=== PATIENT | male | born 1960 | race Caucasian/White ===

== ENCOUNTER 2016-10-29 03:22 | Emergency (ER) | payer OTHER ==
[~2016-10-29] VITALS: Ht 180.3 cm; Wt 72.7 kg
[2016-10-29 03:30] VITALS: BP 118/66; PULSE 82; RESP 16; O2SAT 96
--- NOTE | 2016-10-29 04:40 | ED.REPORT ---
HPI-Overdose/Alcohol Toxicity Date of Service Oct 29, 2016 ED Provider: Rohan Weiss MD Pt is a 55 y.o. male with a hx of polysubstance abuse who presents to the ED via EMS with ETOH intoxication. Per EMS pt fell down at [facility] and is unable to walk and had slurred speech. Upon arrival to the ED pt is seeking detox services. Pt reports a hx of withdrawal seizures. Pt endorse to ETOH use and denies drug use. He has no medical complaints at this time. Nursing Notes Stated Complaint: DETOX Chief Complaint: Substance Abuse Nursing Notes Reviewed: Yes Allergies: Coded Allergies: hydrocodone bitartrate (Verified Allergy, Unknown, 10/02/16) No Active Prescriptions or Reported Meds General Time Seen by Provider: 04:18 Chief Complaint Intoxicated, alcohol Hx Obtained From: Patient, EMS Arrived By: Ambulance Onset Occurred: Just prior to arrival Symptom Duration: Since onset Severity: Current: No pain currently Risk-Overdose/Alcohol Tox )( Suicide Risk Stratification RF Statements: Risk factors reviewed Past Medical History Past Medical History Notes: Multiple recent ED visits for alcohol intoxication, high volume utilizer Past Medical History 1. H/o paroxysmal A-fib at the time of Cardiac arrest attributed to respiratory depression from polysubstance abuse with resultant anoxic encephalopathy 01/2012 2. History of alcoholism with abuse/dependence, ongoing and history of withdrawal seizure and a multitude of ED visits related to EtOH 3. H/o subdural hemorrhage(multiple) 4. Prior heroin use 5. Hepatitis C 6. Chronic pain 7. Anxiety 8. Mutliple falls with innumerable head CTs performed, history of subdurals requiring keenan holes 9. Katharine-Schlatter disease as a youth Past Surgical History Cervical surgery Bronchoscopy Family History Alcoholism Smoking History Current Every Day Smoker Social History History of IV heroin and alcohol abuse. Alcohol Use: >5 per day Drug Use: Denies drug use Other Social History: Frequent ED visitor, Local resident Ambulatory Status Independent Review of Systems Intoxication, ETOH Neurologic: Reports: Problem walking, Slurred speech (due to ETOH) Complete sys rev & neg: except as marked. Physical Exam Initial Vital Signs Vital Signs (First) Date Time Temp Pulse Resp B/P Pulse Ox O2 Delivery O2 Flow Rate FiO2 10/29/16 03:30 36.4 82 16 118/66 96 Room Air Initial VS: Reviewed, Vital signs normal Head / Eyes: Atraumatic, Normocephalic Extremities: Vascular intact, Neuro intact Skin: Warm, Dry, No cyanosis General/Constitutional: Awake, Alert, Well appearing, Well developed, Well hydrated, Well nourished, Not toxic appearing Appearance / Presentation: Positive: Intoxicated Respiratory / Chest: Atraumatic, Breath sounds NL, Breath sounds = bilat, No respiratory distress, No rales, No rhonchi, No wheezing, No retractions, No stridor Cardiovascular: Heart rate NL, Regular rhythm, Heart sounds NL, No gallop, No murmurs, No rubs, Peripheral circulation NL Abdomen: Atraumatic, Soft, Non-tender, No distention Neurologic: Oriented X3 Speech: Positive: Slurred (due to ETOH) Psychiatric: Not suicidal, Not homicidal Re-Eval/Medical Decision Med Decision/Clinical Course T5-year-old alcoholic well known to this emergency room presents with an infallible plan for sobriety that needs to start with a prescription of Librium from me. There are no sobering beds available. He has no association with any sober individual I am aware of. He is being discharged home and encouraged to make a plan during the day with outpatient providers. Source of Hx: Old records Re-Evaluation/Progress : Time of Eval: 04:37 Re-Evaluation/Progress Note: Pt informed that [facility] does not have any beds currently. Discussed plan for discharge, pt understands and agrees with plan. Counseled Regarding: Diagnosis, Need for follow-up, When/why to return to ED Discharge & Departure Impression: Primary Impression: Alcohol intoxication Complication of substance-induced condition: uncomplicated Qualified Code: F10.120 - Alcohol abuse with intoxication, uncomplicated Disposition: Home Discharge Condition All VS Reviewed: Yes Condition: Stable Patient Instructions: Alcohol Intoxication (ED) Additional Instructions: There are no beds available at sobering services. You can check with them again on Wednesday, as beds may be opening up. Limit your alcohol intake. Follow- up with your sponsor, your alcohol counselor, and/or your primary doctor. Referrals: OTHER,PHYSICIAN (PCP) [facility] Scribe Attestation Portions of this note were transcribed by Annelise Wolfe. I, Dr. Weiss personally performed the history, physical exam and medical decision-making; I reviewed and confirmed the accuracy of the information in the transcribed note. Signed by: Nathalie Sánchez, 10/29/16 and 0552 copies to: [facility] Rohan Weiss MD Oct 29, 2016 04:40 ANNELISE WOLFE Oct 29, 2016 04:46
== END 2016-10-29 04:58 | disposition home or self-care (01) ==
LOC: SED 03:22
DX: F10.120 Alcohol abuse with intoxication, uncomplicated (principal); F17.200 Nicotine dependence, unspecified, uncomplicated; Z88.5 Allergy status to narcotic agent

== ENCOUNTER 2016-12-25 21:00 | Emergency (ER) | payer OTHER ==
[~2016-12-25] VITALS: Ht 180.3 cm; Wt 68.2 kg
[2016-12-25 21:03] VITALS: BP 119/74; PULSE 85; RESP 16; O2SAT 97
--- NOTE | 2016-12-25 21:46 | ED.REPORT ---
HPI-Overdose/Alcohol Toxicity Date of Service Dec 25, 2016 ED Provider: Rohan Weiss MD Patient is a 56 year old male with a history of alcohol abuse with alcohol withdrawal seizures who presents to the ED seeking medical clearance for [facility], last drinking alcohol at 4:30pm this afternoon. Patient states that he was recently sober for 2 months but he relapsed after his brother last week. He has been drinking every day since. Patient admits to shaking and is concerned for alcohol withdrawal seizures. Patient states that he is very anxious. Patient denies vomiting or diarrhea. Patient admits to smoking marijuana but denies any other illicit drug use. The patient has a bed at [facility] at 11am tomorrow morning. Patient reportedly drove to [facility] tonight while intoxicated. He was put into a taxi and sent to the ED for evaluation. Nursing Notes Stated Complaint: DETOX Chief Complaint: Substance Abuse Nursing Notes Reviewed: Yes Allergies: Coded Allergies: hydrocodone bitartrate (Verified Allergy, Unknown, 12/25/16) No Active Prescriptions or Reported Meds General Time Seen by Provider: 22:09 Chief Complaint Other (alcohol withdrawal) Hx Obtained From: Patient Arrived By: Walk-in Onset Occurred: 5 - 8 hours ago Symptom Duration: Since onset Severity: Current: No pain currently Severity: Maximum: No pain Recent Healthcare: No recent doctor visit, No recent hospitalization Similar Sx Previous: Yes Past Medical History Past Medical History 1. H/o paroxysmal A-fib at the time of Cardiac arrest attributed to respiratory depression from polysubstance abuse with resultant anoxic encephalopathy 01/2012 2. History of alcoholism with abuse/dependence, ongoing and history of withdrawal seizure and a multitude of ED visits related to EtOH 3. H/o subdural hemorrhage(multiple) 4. Prior heroin use 5. Hepatitis C 6. Chronic pain 7. Anxiety 8. Mutliple falls with innumerable head CTs performed, history of subdurals requiring keenan holes 9. Katharine-Schlatter disease as a youth Past Surgical History Cervical surgery Bronchoscopy Family History Alcoholism Smoking History Current Every Day Smoker Social History History of IV heroin and alcohol abuse. Alcohol Use: >5 per day Drug Use: Denies drug use Other Social History: Frequent ED visitor, Local resident Ambulatory Status Independent Review of Systems GI: Denies: Diarrhea, Vomiting Neurologic: Reports: Shaking, Denies: Seizure Psychiatric: Reports: Anxiety, Denies: Suicidal ideation Complete sys rev & neg: except as marked. Physical Exam Initial Vital Signs Vital Signs (First) Date Time Temp Pulse Resp B/P Pulse Ox O2 Delivery O2 Flow Rate FiO2 12/25/16 21:03 37.0 85 16 119/74 97 Room Air Initial VS: Reviewed, Vital signs normal Head / Eyes: Atraumatic, Normocephalic, PERRL ENT: Conjunctiva normal, No scleral icterus Neck: Supple, Full range of motion Extremities: Vascular intact, Neuro intact, No swelling Skin: Warm, Dry, No cyanosis General/Constitutional: Awake, Alert Behavior: Positive: Anxious tremulous, hard of hearing Respiratory / Chest: Breath sounds NL, Breath sounds = bilat, No respiratory distress, No rales, No rhonchi, No wheezing Cardiovascular: Regular rhythm, Heart sounds NL, No murmurs Heart Rate / Rhythm: Positive: Tachycardia Abdomen: Soft, Non-tender, No guarding, No rebound Neurologic: Oriented X3, Speech NL, No motor deficits, No sensory deficits Psychiatric: Not suicidal, Not homicidal Abnormal Mood/Affect: Positive: Anxious ENT: Airway patent, Mucous membranes moist edentulous Interpretation & Diagnostics Interpretation & Diagnostics: Breathalyzer: 0.173 Lab Results Interpretation Test 12/25/16 22:04 Hold Urine Received (Received) Re-Eval/Medical Decision Med Decision/Clinical Course 56-year-old male who had been clean and sober for a period time, but a brother and he relapsed. He is set up to go to [facility]. His alcohol level is 0.1 [birth year]/06/1980 showing mild withdrawal symptoms. He was given an Ativan and will be discharged to [facility] with an Ativan prepack taper. He is medically cleared for outpatient treatment at this time. Source of Hx: Old records Re-Evaluation/Progress : Time of Eval: 23:15 Patient Status: Condition improved Re-Evaluation/Progress Note: Patient was informed that a bed has now opened for him at [facility]. Patient understands and agrees with the plan to be discharged to go directly to [facility]. Discharge instructions and follow-up discussed. All questions were addressed. Return to the ED warnings given. Counseled Regarding: Diagnosis, Lab results, Need for follow-up, When/why to return to ED Discharge & Departure Impression: Primary Impression: Alcohol withdrawal Complication of substance-induced condition: uncomplicated Qualified Code: F10.230 - Alcohol dependence with withdrawal, uncomplicated Additional Impression: Alcohol abuse )( Condition at Discharge: No danger to self, No danger to others, No suicidal ideation, No homicidal ideation Disposition: Home Discharge Condition All VS Reviewed: Yes Condition: Stable Patient Instructions: Alcohol Withdrawal (ED) Additional Instructions: Go directly to [facility]. Lorazepam (Ativan) taper is sent with the patient. Referrals: OTHER,PHYSICIAN (PCP) (Family) Scribe Attestation Portions of this note were transcribed by Melany Andres. I, Dr. Weiss personally performed the history, physical exam and medical decision-making; I reviewed and confirmed the accuracy of the information in the transcribed note. Signed by: Nathalie Degroot, 12/25/2016 [id number] copies to: OTHER,PHYSICIAN Rohan Weiss MD Dec 25, 2016 21:46 Melany Andres Dec 25, 2016 22:16
[2016-12-25 21:51] VITALS: BP 128/77; PULSE 78; RESP 16; O2SAT 98
[2016-12-25] MEDS ORDERED: LORazepam 2 mg Tablet PO ONE (22:15)
[2016-12-25] MEDS ORDERED: _LORazepam 2 MG Tablet PO SCH (23:15)
[2016-12-26 00:46] VITALS: BP 140/90; PULSE 80; RESP 16; O2SAT 99
== END 2016-12-26 00:47 | disposition home or self-care (01) ==
LOC: SED 21:00
DX: F10.230 Alcohol dependence with withdrawal, uncomplicated (principal); I48.0 Paroxysmal atrial fibrillation; F17.200 Nicotine dependence, unspecified, uncomplicated; Z88.5 Allergy status to narcotic agent

== ENCOUNTER 2017-01-12 09:48 | Emergency (ER) | payer OTHER ==
[2017-01-12 10:14] VITALS: BP 113/75; PULSE 56; RESP 16; O2SAT 94
--- NOTE | 2017-01-12 10:57 | ED.REPORT ---
HPI-Overdose/Alcohol Toxicity Date of Service Jan 12, 2017 ED Provider: Emy Garcia History of Present Illness: last drink this am. has had seizures with stopping alcohol. Has a bed at crisis. primary care is [facility]andra in [place]. wants drugs, any Upset because he was told at crisis it would only take a few minutes. Nursing Notes Stated Complaint: MEDICAL CLEARANCE Chief Complaint: Substance Abuse Nursing Notes Reviewed: Yes Allergies: Coded Allergies: hydrocodone bitartrate (Verified Allergy, Unknown, 01/12/17) No Active Prescriptions or Reported Meds General Time Seen by Provider: 10:53 Chief Complaint Intoxicated, alcohol Hx Obtained From: Patient Risk-Overdose/Alcohol Tox )( Suicide Risk Stratification : Alcohol use: Substance abuseNo: Access to firearms, Close associate suicide, Family Hx of Suicide, Previous attempt, Prior psych admission RF Statements: Risk factors reviewed Past Medical History Past Medical History 1. H/o paroxysmal A-fib at the time of Cardiac arrest attributed to respiratory depression from polysubstance abuse with resultant anoxic encephalopathy 01/2012 2. History of alcoholism with abuse/dependence, ongoing and history of withdrawal seizure and a multitude of ED visits related to EtOH 3. H/o subdural hemorrhage(multiple) 4. Prior heroin use 5. Hepatitis C 6. Chronic pain 7. Anxiety 8. Mutliple falls with innumerable head CTs performed, history of subdurals requiring keenan holes 9. Katharine-Schlatter disease as a youth Past Surgical History Cervical surgery Bronchoscopy Family History Alcoholism Smoking History Current Every Day Smoker Social History History of IV heroin and alcohol abuse. Alcohol Use: >5 per day Drug Use: Denies drug use Other Social History: Frequent ED visitor, Local resident Occupation reprts having a home 01/12/2017 Ambulatory Status Independent Review of Systems Basic Review of Systems : No dysuria, No frequency Allergy / Immune: No allergy Physical Exam Initial Vital Signs Vital Signs (First) Date Time Temp Pulse Resp B/P Pulse Ox O2 Delivery O2 Flow Rate FiO2 01/12/17 10:14 36.8 56 16 113/75 94 Room Air Initial VS: Reviewed, Vital signs normal Head / Eyes: Atraumatic, Normocephalic, PERRL ENT: Mucous membranes moist, Conjunctiva normal, No scleral icterus Neck: Supple, Non-tender, Full range of motion Back: No CVA tenderness Lymphatic: No lymphadenopathy Extremities: Vascular intact, Neuro intact, No swelling, No tenderness Skin: Warm, Dry, No cyanosis General/Constitutional: Awake, Alert, No acute distress, Well appearing, Well developed, Well hydrated, Well nourished, Cooperative, Not toxic appearing Respiratory / Chest: Atraumatic, Breath sounds NL, Breath sounds = bilat, No respiratory distress Cardiovascular: Heart rate NL, Regular rhythm, Heart sounds NL, No gallop Abdomen: Atraumatic, Soft, Non-tender Neurologic: Oriented X3, Speech NL, No motor deficits Psychiatric: Affect NL, Mood NL, Not suicidal Re-Eval/Medical Decision Med Decision/Clinical Course 56 year old male well known to the ER presents for [facility] clearance. Patient is unhappy that he had to wait. Etoh is at .225 and utox is negative. He is cleared to go to crisis and is provided a prescription for an ativan prepack. Patient with aspects of personality disorder, which is his baseline as is alsohol abue. No sign of OD attempt at this time. Discharge & Departure Impression: Primary Impression: Alcohol abuse Patient Instructions: Abuse of Alcohol (ED) Additional Instructions: You have a bed at crisis. Please work on staying sober. You are being provided an ativan prescription. Follow with primary care as needed. Referrals: OTHER,PHYSICIAN (PCP) (Family) EDSupervising Provider for APC: Geoffrey Mcadams MD, Sue ARNP Jan 12, 2017 10:57
== END 2017-01-12 11:07 | disposition home or self-care (01) ==
LOC: SED 09:48
DX: F10.10 Alcohol abuse, uncomplicated (principal); F17.200 Nicotine dependence, unspecified, uncomplicated; Z88.5 Allergy status to narcotic agent
CPT/HCPCS: 81002; 82075; 99284; Q0177

== ENCOUNTER 2017-01-18 13:38 | Emergency (ER) | payer OTHER ==
[~2017-01-18] VITALS: Ht 180.3 cm; Wt 70.5 kg
[2017-01-18 14:31] VITALS: BP 108/72; PULSE 84; RESP 18; O2SAT 96
--- NOTE | 2017-01-18 15:07 | ED.REPORT ---
HPI-General Illness Date of Service Jan 18, 2017 ED Provider: Harris Robison MD The patient is a 56 year old male with history of alcohol abuse, who presents to the emergency department requesting medical clearance for crisis [facility]. The patient relapsed about 3 months ago and has been drinking about 1 pint of hard alcohol each day. He has had seizures with alcohol withdrawal in the past. He denies drug use. He denies suicidal or homicidal ideation. He denies any physical complaints at this time. Nursing Notes Stated Complaint: DETOX Chief Complaint: Substance Abuse Nursing Notes Reviewed: Yes Allergies: Coded Allergies: hydrocodone bitartrate (Verified Allergy, Unknown, 01/12/17) No Active Prescriptions or Reported Meds General Time Seen by MD: 14:59 Chief Complaint Medical clearance Hx Obtained From: Patient Arrived By: Walk-in Sudden in Onset?: No Onset Occurred: More than a week ago... Context of Onset: EtOH use Symptom Duration: Since onset Severity: Current: Moderate Severity: Maximum: Moderate Recent Healthcare: No recent doctor visit, No recent hospitalization Similar Sx Previous: Yes Past Medical History Past Medical History 1. H/o paroxysmal A-fib at the time of Cardiac arrest attributed to respiratory depression from polysubstance abuse with resultant anoxic encephalopathy 01/2012 2. History of alcoholism with abuse/dependence, ongoing and history of withdrawal seizure and a multitude of ED visits related to EtOH 3. H/o subdural hemorrhage(multiple) 4. Prior heroin use 5. Hepatitis C 6. Chronic pain 7. Anxiety 8. Mutliple falls with innumerable head CTs performed, history of subdurals requiring keenan holes 9. Katharine-Schlatter disease as a youth Past Surgical History Cervical surgery Bronchoscopy Family History Alcoholism Smoking History Current Every Day Smoker Social History History of IV heroin and alcohol abuse. Alcohol Use: >5 per day Drug Use: Denies drug use Other Social History: Frequent ED visitor, Local resident Occupation reprts having a home 01/12/2017 Ambulatory Status Independent Review of Systems Full Review of Systems Constitutional: Denies: Chills, Fever Ears / Nose / Throat: Denies: Nasal congestion, Sore throat Respiratory: Denies: Non-productive cough, Shortness of breath Cardiovascular: Denies: Chest pain GI: Denies: Abdominal pain, Diarrhea, Vomiting Skin: Denies Rash Neurologic: Denies: Confusion, Focal weakness, Numbness Psychiatric: Denies: Homicidal ideation, Suicidal ideation Complete sys rev & neg: except as marked. Physical Exam Vital Signs Vital Signs Date Time Temp Pulse Resp B/P Pulse Ox O2 Delivery O2 Flow Rate FiO2 01/18/17 14:31 37.0 84 18 108/72 96 Room Air Initial VS: Reviewed Head / Eyes: Atraumatic, Normocephalic, PERRL Neck: Supple, Non-tender, Full range of motion Respiratory: Breath sounds normal, Clear to auscultation, No respiratory distress Cardiovascular: Regular rate & rhythm, Heart sounds normal, Intact distal pulses Abdomen / GI: Soft, Non-tender, No guarding, No rebound, No distention Extremities: Vascular intact, Neuro intact, No swelling, No tenderness Skin: Warm, Dry, No cyanosis Neurologic: Alert, Oriented, Nonfocal Psychiatric: Mood/affect normal, Behavior normal, Normal thought content General/Constitutional: Awake, Alert, Cooperative ENT: Airway patent Mouth: Positive: Mucous membranes dry Interpretation & Diagnostics Lab Results Interpretation Test 01/18/17 15:37 Hold Urine Received (Received) Re-Eval/Medical Decision Med Decision/Clinical Course The patient is a 56 year old male with history of alcohol abuse, who presents to the emergency department requesting medical clearance for crisis [facility]. The patient relapsed about 3 months ago and has been drinking about 1 pint of hard alcohol each day. He has had seizures with alcohol withdrawal in the past. He denies drug use. He denies suicidal or homicidal ideation. He denies any physical complaints at this time. Emergency room he is afebrile and hemodynamically stable. He smells of alcohol though he does not demonstrate any significant degree of clinical intoxication. Breathalyzer: 252, repeat 213 Urine drug screen: negative Patient is without suicidal or homicidal ideation. He has no significant medical comorbidities. He is neurologically intact. There is no evidence of trauma or other significant organic illness. He has significant history of alcohol abuse as well as alcohol withdrawal seizures though he is not clinically in any degree of alcohol withdrawal at this time. He was observed here in the emergency department and did receive 1 mg of oral Ativan as he reported feeling mildly tremulous. He is seen and evaluated by our emergency department social media editor and there is a bed available for him at [facility]. He was discharged there with an Ativan taper which will be filled and administered by staff at crisis respite. Prior to discharge follow-up and return precautions were reviewed in detail with the patient who verbalized understanding and agreement with the plan. The patient was discharged in stable condition. Source of Hx: Old records Time of Eval: 16:29 Re-Evaluation/Progress Note: Discussed plan for discharge to crisis resp[facility]. All questions were addresserd. Counseled Regarding: Diagnosis, Lab results, Need for follow-up, When/why to return to ED Discharge & Departure Primary Impression: Alcohol abuse Additional Impressions: Alcohol dependence with withdrawal Complication of substance-induced condition: uncomplicated Qualified Code: F10.230 - Alcohol dependence with withdrawal, uncomplicated Anxiety Disposition: Home Discharge Condition All VS Reviewed: Yes Condition: Stable Patient Instructions: Abuse of Alcohol (ED) Additional Instructions: Thank you for seeking care at the emergency room. Our primary goal today in the ED was to evaluate you for any life-threatening conditions. Your evaluation was reassuring. Go directly to [facility]. Use the Ativan prescription as prescribed. You should return to the ED immediately if you develop abdominal pain, uncontrollable vomiting, lightheadedness, weakness or any other concerning signs or symptoms. Thank you for letting us partake in your care today. Referrals: OTHER,PHYSICIAN (PCP) (Family) Scribe Attestation Portions of this note were transcribed by Melissa Raymond. I, Dr. Robison personally performed the history, physical exam and medical decision-making; I reviewed and confirmed the accuracy of the information in the transcribed note. Signed by: Nathalie Stovall, 01/18/2017 at 1645. Harris Robison MD Jan 18, 2017 15:07 Melissa Raymond Jan 18, 2017 15:42
[2017-01-18] MEDS ORDERED: LORazepam 1 mg Tablet PO ONE (16:30)
== END 2017-01-18 17:39 | disposition home or self-care (01) ==
LOC: SED 13:38
DX: F10.230 Alcohol dependence with withdrawal, uncomplicated (principal); F41.9 Anxiety disorder, unspecified; F17.200 Nicotine dependence, unspecified, uncomplicated